=== PATIENT | male | born 1955 | race Caucasian/White ===

== ENCOUNTER → 2022-11-27 | Outpatient (CLI) | payer OTHER, SELFPAY ==
--- NOTE | 2022-11-27 07:52 | ECHOCS_ITS ---
Reason For Study: Ischemic Heart Disease Procedure This was a 2D Doppler, Color Flow transthoracic echocardiogram. The study was technically difficult. Contrast injection was performed. Exam performed in department. Left Ventricle Normal LV size. Left ventricular systolic function is normal. Stage 1 diastolic dysfunction. No regional wall motion abnormalities noted. Right Ventricle Normal RV size. Normal systolic function. Atria Normal left atrium. Normal right atrium. Mitral Valve Normal mitral valve. Tricuspid Valve Normal tricuspid valve. Mild tricuspid valve insufficiency. Aortic Valve Trisinus/trileaflet aortic valve. Mild focal aortic valve calcification. Mild aortic stenosis. Mild (1+) aortic valve insufficiency. Pulmonic Valve Normal pulmonic valve. Great Vessels Normal aortic root. The pulmonary artery is normal size. Normal inferior vena cava. Pericardium/Pleural No pericardial effusion. Medication 22 gauge I.V. with prn adaptor inserted into right arm. Diluted definity 4ml given slow IV push to enhance endocardial definition. MMode/2D Measurements & Calculations LVIDd: 5.3 cm IVSd: 1.1 cm LVOT diam: 2.0 cm LVIDs: 3.9 cm LVPWd: 1.1 cm RVDd: 3.8 cm FS: 26.5 % LVOT area: 3.1 cm2 LA dimension: 4.3 cm LAV(MOD-bp): 52.1 ml LVAd ap4: 37.9 cm2 LAV(MOD-bp) Indexed: 22.1 ml/m2 LVLd ap4: 8.6 cm LAV(MOD-sp2): 63.0 ml EDV(MOD-sp4): 136.4 ml LAV(MOD-sp4): 42.9 ml EDV(sp4-el): 141.3 ml LVAs ap4: 24.3 cm2 LVLs ap4: 7.9 cm ESV(MOD-sp4): 62.3 ml ESV(sp4-el): 63.4 ml EF(MOD-sp4): 54.3 % EF(sp4-el): 55.2 % LVAd ap2: 35.4 cm2 SV(MOD-sp4): 74.1 ml SV(MOD-sp2): 64.6 ml LVLd ap2: 8.5 cm EDV(MOD-sp2): 119.9 ml EDV(sp2-el): 125.9 ml LVAs ap2: 22.1 cm2 LVLs ap2: 7.3 cm ESV(MOD-sp2): 55.3 ml ESV(sp2-el): 57.1 ml EF(MOD-sp2): 53.9 % SV(sp4-el): 77.9 ml LA A4 area: 18.3 cm2 RA A4 area: 15.9 cm2 TAPSE: 1.4 cm Time Measurements MV dec time: 0.52 sec Doppler Measurements & Calculations MV E max levi: 51.0 cm/sec Lat Peak E' Levi: 11.2 cm/sec Med Peak E' Levi: 7.6 cm/sec MV A max levi: 80.8 cm/sec E/E' lat: 4.5 E/E' med: 6.7 MV E/A: 0.63 MV V2 max: 93.1 cm/sec MV P1/2t max levi: 70.1 cm/sec Ao V2 max: 203.5 cm/sec MV max P.5 mmHg MV P1/2t: 162.0 msec Ao max P.6 mmHg MV V2 mean: 48.9 cm/sec MV dec slope: 126.8 cm/sec2 Ao V2 mean: 136.6 cm/sec MV mean P.1 mmHg Ao mean P.6 mmHg MV V2 VTI: 34.4 cm MVA(P1/2t): 1.4 cm2 Ao V2 VTI: 45.2 cm MVA(VTI): 2.7 cm2 AV (velocity ratio): 0.66 BEN(I,D): 2.1 cm2 BEN(V,D): 1.9 cm2 AI max levi: 429.0 cm/sec LV V1 max: 125.6 cm/sec SV(LVOT): 93.6 ml AI max P.6 mmHg LV V1 max P.3 mmHg AI dec slope: 193.0 cm/sec2 LV V1 mean P.4 mmHg AI P1/2t: 651.1 msec LV V1 mean: 85.8 cm/sec LV V1 VTI: 29.9 cm PA V2 max: 77.5 cm/sec TR max levi: 199.7 cm/sec TR max P.0 mmHg ECHO/Echo Complete W/ Contrast Interpretation Summary Normal LV size. Left ventricular systolic function is normal. Stage 1 diastolic dysfunction. Mild focal aortic valve calcification. Mild (1+) aortic valve insufficiency. Contrast injection was performed. Ordering Physician: Hemanth Rhodes Referring Physician: [place], [place] Performed By: Eulalio Pisano RCS
== END | disposition home or self-care (01) ==
PROVIDERS: Visit Provider Chiropractor
DX: I25.9 Chronic ischemic heart disease, unspecified (principal); I35.1 Nonrheumatic aortic (valve) insufficiency
CPT/HCPCS: 93306; Q9957; A4216; C8929

== ENCOUNTER → 2024-03-05 | Outpatient (CLI) | payer OTHER, SELFPAY | END | disposition home or self-care (01) | LOC: SL 20:01 | DX: G47.33 Obstructive sleep apnea (adult) (pediatric) (principal) | CPT/HCPCS: 95811 ==